=== PATIENT | female | born 1960 | race Caucasian/White ===

== ENCOUNTER → 2017-05-19 | Outpatient (CLI) | payer MEDICARE, MEDICAID ==
--- NOTE | 2017-05-19 10:27 | RADIOLOGY REPORT (SQ) ---
EXAM DESCRIPTION: CT HEAD WITHOUT COMPLETED DATE/TIME: 05/19/2017 9:12 am REASON FOR STUDY: OTHER AMNESIA (R41.3) R41.3 OTHER AMNESIA COMPARISON: None. TECHNIQUE: Axial images acquired through the brain without intravenous contrast. Images reviewed wi th bone, brain and subdural windows. Images stored on PACS. All CT scanners at this facility use dose modulation, iterative reconstruction, and/or weight based d osing when appropriate to reduce radiation dose to as low as reasonably achievable (ALARA). [facility]: Dose Right [facility]: CareDose [facility]: Dose Right [facility]: Teradose 4D [facility]: Stem CentRx RADIATION DOSE: Up-to-date CT equipment and radiation dose reduction techniques were employed. CTDIv ol: 49.0 mGy. DLP: 881 mGy-cm. mGy. LIMITATIONS: None. FINDINGS: VENTRICLES: Normal size and contour. CEREBRUM: No masses. No hemorrhage. No midline shift. No evidence for acute infarction. Normal gra y/white matter differentiation. No areas of low density in the white matter. CEREBELLUM: No masses. No hemorrhage. No alteration of density. No evidence for acute infarction. EXTRAAXIAL SPACES: No fluid collections. No masses. ORBITS AND GLOBE: No intra- or extraconal masses. Normal contour of globe without masses. CALVARIUM: No fracture. PARANASAL SINUSES: No fluid or mucosal thickening. SOFT TISSUES: No mass or hematoma. OTHER: No other significant finding. IMPRESSION: NORMAL BRAIN CT WITHOUT CONTRAST. EVIDENCE OF ACUTE STROKE: NO. COMMENT: Quality ID # [id number]: Final reports with documentation of one or more dose reduction techniques (e.g., Automated exposure control, adjustment of the mA and/or kV according to patient size, use of iterative reconstruction technique) TECHNICAL DOCUMENTATION: JOB ID: [id number]- All Rights Reserved
== END ==
LOC: RAD 09:01
PROVIDERS: ATTEND Family Medicine
DX: R41.3 Other amnesia (principal)
CPT/HCPCS: 70450

== ENCOUNTER → 2017-05-22 | Outpatient (CLI) | payer MEDICARE, MEDICAID ==
--- NOTE | 2017-05-22 12:56 | RADIOLOGY REPORT (SQ) ---
EXAM DESCRIPTION: MRI THORACIC SPINE WITHOUT COMPLETED DATE/TIME: 05/22/2017 12:00 pm REASON FOR STUDY: (M54.6) PAIN IN THORACIC SPINE M54.6 PAIN IN THORACIC SPINE COMPARISON: None. TECHNIQUE: Sagittal and Axial imaging includes T1, T2, STIR and gradient echo sequences. LIMITATIONS: Motion. FINDINGS: LOCALIZER: No worrisome findings. ALIGNMENT: Normal. VERTEBRAE: Intact. BONE MARROW: Benign hemangiomas. No significant marrow abnormality. HARDWARE: None in the spine. CORD: Normal in size and signal intensity. SOFT TISSUES: No soft tissue masses. THORACIC DISCS T1-T12: Ventral impression on the thecal sac due to small right paracentral disc herni ation at T12-L1. LOWER CERVICAL: Postsurgical changes. UPPER LUMBAR: Incompletely imaged. No obvious acute findings. OTHER: No other significant finding. IMPRESSION: Small disc herniation T12-L1. No evidence of acute compression fracture. TECHNICAL DOCUMENTATION: JOB ID: [id number] [employer]- All Rights Reserved
== END ==
LOC: RAD 10:52
PROVIDERS: ATTEND Family Medicine
DX: M54.6 Pain in thoracic spine (principal)
CPT/HCPCS: 72146

== ENCOUNTER 2017-07-24 11:31 | Day surgery (SDC) | payer MEDICARE, MEDICAID ==
[~2017-07-24 11:31] MED LIST: FENTANYL CITRATE INJ/PF 100 MCG/2 ML AMPUL ONE; MIDAZOLAM 2 MG/2 ML INJ ONE; PROPOFOL INJ 200 MG/20 ML VIAL IV ONE
[2017-07-24] MEDS ORDERED: PROPOFOL INJ 200 MG/20 ML VIAL IV ONE (11:55)
--- NOTE | 2017-07-24 13:09 | Operative Report ---
Operative Report DATE OF SURGERY: 07/24/17 Operative Report: The risks, benefits and alternatives of the procedure including risks of bleeding, perforation requiring surgery are explained to the patient in detail and informed consent is obtained. Patient was taken back to the endoscopy suite and placed in a left, lateral decubital position. Timeout was called. Propofol medications administered. A rectal examination was done which did not reveal any masses, tears or fissures. An Olympus videoscope was inserted into the patient's rectum. The scope was then carefully advanced all the way to the cecum. The cecum was identified by the usual anatomical landmarks including the ileocecal valve as well as the appendiceal office. Photodocumentation was obtained. Prep is good. The scope was then sequentially pulled back via the rest segments of the colon including the ascending colon, hepatic flexure, transverse colon, splenic flexure, descending colon finding to the rectosigmoid portions of the colon. Retroflexion maneuver is performed. The risks benefits and alternatives of the procedure explained to the patient in detail and informed consent is obtained.A GIF Olympus video scope was inserted into the patient's mouth and hypopharynx, the esophagus is identified intubated and insufflated ,the scope was then advanced through the esophagus stomach and duodenum, retroflexion maneuver is done, the esophagus stomach and first and second portions of the duodenum examined PREOPERATIVE DIAGNOSIS: Change in bowel habits. Dysphagia POSTOPERATIVE DIAGNOSIS: Gastritis status post biopsy rule out Helicobacter pylori. Hiatal hernia. 2 polyps one in the cecum and the other in the transverse colon area. The cecal polyp was removed via snare polypectomy and retrieved. The polyp in the transverse colon area was ablated in situ no tissue was retrieved. Internal hemorrhoids OPERATION: Colonoscopy with snare polypectomy. EGD with biopsy SURGEON: SERENITY QUIROGA ANESTHESIA: LMAC TISSUE REMOVED OR ALTERED: As noted above. COMPLICATIONS: None. ESTIMATED BLOOD LOSS: None. INTRAOPERATIVE FINDINGS: As noted above. PROCEDURE: Patient tolerated procedure well. No immediate postprocedure complications are noted. Patient discharged in good condition. Discharge date 07/24/2017. Discharge diet: Regular. Discharge activity: Regular. 2-3 week follow-up to discuss findings. Patient is instructed to call the office or proceed to the emergency room should there be any further problems or questions. 3-5 year surveillance colonoscopy. We will await pathology.
[2017-07-24] MEDS ORDERED: SIMETHICONE 80 MG TAB.CHEW ONE (13:13)
[2017-07-24 13:48] VITALS: BP 115/63
== END 2017-07-24 13:35 | disposition home or self-care (01) ==
LOC: END 11:31
PROVIDERS: ATTEND Internal Medicine Gastroenterology
PROC: 0D5L8ZZ Destruction of Transverse Colon, Via Natural or Artificial Opening Endoscopic (ICD-10-PCS; 2017-07-24)
PROC: 0DB68ZX Excision of Stomach, Via Natural or Artificial Opening Endoscopic, Diagnostic (ICD-10-PCS; principal; 2017-07-24 14:00)
PROC: 0DBH8ZX Excision of Cecum, Via Natural or Artificial Opening Endoscopic, Diagnostic (ICD-10-PCS; 2017-07-24 14:00)
DX: D12.0 Benign neoplasm of cecum (principal); D12.3 Benign neoplasm of transverse colon; K64.8 Other hemorrhoids; K44.9 Diaphragmatic hernia without obstruction or gangrene; K29.50 Unspecified chronic gastritis without bleeding; E03.9 Hypothyroidism, unspecified; M19.90 Unspecified osteoarthritis, unspecified site; Z88.5 Allergy status to narcotic agent; Z88.8 Allergy status to other drugs, medicaments and biological substances; Z79.899 Other long term (current) drug therapy
CPT/HCPCS: 43239; 45385; 88305 ×2; A9270; J2704; J2250; J3010

== ENCOUNTER → 2017-12-01 | Outpatient (CLI) | payer MEDICARE, MEDICAID ==
--- NOTE | 2017-12-01 13:27 | RADIOLOGY REPORT (SQ) ---
EXAM DESCRIPTION: T SPINE AP/LAT COMPLETED DATE/TIME: 12/01/2017 1:20 pm REASON FOR STUDY: M54.2 M54.9 DORSALGIA, UNSPECIFIED M54.2 CERVICALGIA COMPARISON: None. NUMBER OF VIEWS: Two views. TECHNIQUE: AP and lateral radiographic images acquired of the thoracic spine. LIMITATIONS: None. FINDINGS: MINERALIZATION: Normal. ALIGNMENT: Normal. No scoliosis. VERTEBRAE: No fracture or bone lesion. Maintained height, normal segmentation. DISCS: No significant loss of height or significant narrowing. No large osteophytes. HARDWARE: None in the spine. MEDIASTINUM AND SOFT TISSUES: Normal heart size and aortic contour. No soft tissue abnormality. VISUALIZED LUNG WILDER: Clear. OTHER: No other significant finding. IMPRESSION: NO SIGNIFICANT RADIOGRAPHIC FINDING IN THE THORACIC SPINE. TECHNICAL DOCUMENTATION: JOB ID: [id number] [employer]- All Rights Reserved Reading location - IP/workstation name: [email or web address]
--- NOTE | 2017-12-01 13:28 | RADIOLOGY REPORT (SQ) ---
EXAM DESCRIPTION: CERV SP 4 OR 5 VIEWS COMPLETED DATE/TIME: 12/01/2017 1:20 pm REASON FOR STUDY: M54.2 CERVICALGIA M54.9 DORSALGIA, UNSPECIFIED M54.9 DORSALGIA, UNSPECIFIED M54.2 CERVICALGIA COMPARISON: None. NUMBER OF VIEWS: Five views. TECHNIQUE: AP, lateral, obliques and odontoid radiographic images acquired of the cervical spine. LIMITATIONS: None. FINDINGS: MINERALIZATION: Normal. ALIGNMENT: Anatomic. VERTEBRAE: Vertebral bodies of normal height. DISCS: Disc space narrowing with osteophytes at C6-C7. FORAMINA: Foraminal narrowing due to posterior osteophytes, most pronounced at C6-C7. LATERAL AND POSTERIOR ELEMENTS: Facets, lateral masses and spinous processes without significant find ings. HARDWARE: Anterior fusion with hardware at C5-C6. SOFT TISSUES: No masses or calcifications. Lung apices clear. OTHER: No other significant finding. IMPRESSION: SURGICAL CHANGES WITH HARDWARE. DEGENERATIVE DISC DISEASE. NO ACUTE FINDINGS. TECHNICAL DOCUMENTATION: JOB ID: [id number] [employer]- All Rights Reserved Reading location - IP/workstation name: [email or web address]
== END ==
LOC: RAD 12:36
PROVIDERS: ATTEND Family Medicine
DX: M50.323 Other cervical disc degeneration at C6-C7 level (principal); M54.9 Dorsalgia, unspecified
CPT/HCPCS: 72050; 72070

== ENCOUNTER 2018-02-09 13:12 | Observation (INO) | payer MEDICAID, MEDICARE ==
[2018-02-09] MEDS ORDERED: NORMAL SALINE 1000 ML 1,000 ML IV ONE ×2 (14:19→16:31)
[2018-02-09] MEDS ORDERED: FAMOTIDINE INJ/PF 20 MG/2 ML SDV IV ONE (14:19)
[2018-02-09] MEDS ORDERED: ONDANSETRON HCL INJ/PF 4 MG/2 ML SDV IV ONE (14:20)
--- NOTE | 2018-02-09 14:24 | ER Document Report ---
ED GI/ - General Chief Complaint: Diarrhea Stated Complaint: DIARRHEA Time Seen by Provider: 02/09/18 13:49 Notes: 57-year-old female patient emergency department chief complaint of nausea vomiting. Patient was diagnosed with C. difficile about 5 or 6 days ago. Has been taking Flagyl but now having increased amounts of nausea and vomiting. States that she does not think she can take the C. difficile medication anymore because it is making her sick. Denies any worsening abdominal pain. Has had persistent diarrhea. No other issues at this time. Denies any fever, chills, sweats. Patient states that she feels dehydrated. TRAVEL OUTSIDE OF THE [place] IN LAST 30 DAYS: No - HPI Patient complains to provider of: Diarrhea, Vomiting Timing/Duration: Gradual, Constant Quality of pain: Achy - Related Data Allergies/Adverse Reactions: codeine [Codeine] Allergy (Unknown, Verified 02/09/18 13:14) CRAMPING naproxen sodium [From Anaprox] Adverse Reaction (Mild, Verified 02/09/18 13:14) cramping Past Medical History - General Information source: Patient - Social History Smoking Status: Never Smoker Chew tobacco use (# tins/day): No Frequency of alcohol use: None Drug Abuse: None Lives with: Family Family History: Reviewed & Not Pertinent Patient has suicidal ideation: No Patient has homicidal ideation: No - Past Medical History Cardiac Medical History: Denies: Hx Coronary Artery Disease, Hx Heart Attack, Hx Hypertension - LOW Pulmonary Medical History: Reports: Hx Asthma - hx, Hx COPD - hx Denies: Hx Bronchitis, Hx Pneumonia Neurological Medical History: Reports: Hx Seizures - R/T ETOH. Denies: Hx Cerebrovascular Accident Renal/ Medical History: Denies: Hx Peritoneal Dialysis GI Medical History: Reports: Hx Hepatitis Musculoskeletal Medical History: Reports Hx Arthritis - DDD, chronic back pain Infectious Medical History: Reports: Hx Hepatitis Past Surgical History: Reports: Hx Cholecystectomy, Hx Hysterectomy, Hx Orthopedic Surgery - L hand - Immunizations Hx Diphtheria, Pertussis, Tetanus Vaccination: Yes Review of Systems - Review of Systems Constitutional: Malaise, Weakness. denies: Fever EENT: denies: Double vision, Difficulty swallowing, Throat swelling Cardiovascular: denies: Chest pain, Palpitations, Heart racing Respiratory: denies: Cough, Hurts to breathe, Stridor, Wheezing Gastrointestinal: Diarrhea, Nausea, Vomiting Genitourinary: denies: Burning, Dysuria, Discharge, Flank pain Female Genitourinary: No symptoms reported Musculoskeletal: No symptoms reported Skin: No symptoms reported Hematologic/Lymphatic: No symptoms reported Neurological/Psychological: No symptoms reported Physical Exam - Vital signs Vitals: Temp Pulse Resp BP Pulse Ox 98.3 F 97 16 125/98 H 97 02/09/18 13:17 02/09/18 13:17 02/09/18 13:17 02/09/18 13:17 02/09/18 13:17 Interpretation: Normal - General General appearance: Appears well, Alert - HEENT Head: Normocephalic, Atraumatic Eyes: Normal Pupils: PERRL - Respiratory Respiratory status: No respiratory distress Chest status: Nontender Breath sounds: Normal Chest palpation: Normal - Cardiovascular Rhythm: Regular Heart sounds: Normal auscultation Murmur: No - Abdominal Inspection: Normal Distension: No distension Bowel sounds: Normal Tenderness: Nontender Organomegaly: No organomegaly - Back Back: Normal, Nontender - Extremities General upper extremity: Normal inspection, Nontender, Normal color, Normal ROM , Normal temperature General lower extremity: Normal inspection, Nontender, Normal color, Normal ROM , Normal temperature, Normal weight bearing. No: Guillermina's sign - Neurological Neuro grossly intact: Yes Cognition: Normal Orientation: AAOx4 Patricia Coma Scale Eye Opening: Spontaneous Patricia Coma Scale Verbal: Oriented Patricia Coma Scale Motor: Obeys Commands Patricia Coma Scale Total: 15 Speech: Normal Motor strength normal: LUE, RUE, LLE, RLE Sensory: Normal - Psychological Associated symptoms: Normal affect, Normal mood - Skin Skin Temperature: Warm Skin Moisture: Dry Skin Color: Normal Course - Re-evaluation Re-evalutation: 02/09/18 16:05 Laboratory 02/09/18 02/09/18 02/09/18 14:37 14:37 14:37 WBC 7.9 RBC 5.75 H Hgb 17.6 H Hct 49.8 H MCV 87 MCH 30.6 MCHC 35.4 RDW 13.6 Plt Count 156 Seg Neutrophils % 59.3 Lymphocytes % 34.4 Monocytes % 4.2 Eosinophils % 1.5 Basophils % 0.6 Absolute Neutrophils 4.7 Absolute Lymphocytes 2.7 Absolute Monocytes 0.3 Absolute Eosinophils 0.1 Absolute Basophils 0.0 Sodium 144.6 Potassium 5.1 H Chloride 102 Carbon Dioxide 27 Anion Gap 16 BUN 12 Creatinine 0.99 Est GFR ( Amer) > 60 Est GFR (Non-Af Amer) 58 L Glucose 82 Calcium 10.7 H Total Bilirubin 0.7 Direct Bilirubin 0.4 Neonat Total Bilirubin Not Reportable Neonat Direct Bilirubin Not Reportable Neonat Indirect Bili Not Reportable AST 97 H ALT 81 H Alkaline Phosphatase 68 Troponin I 0.027 Total Protein 9.9 H Albumin 5.5 H Lipase 80.3 02/09/18 16:34 Patient denies any chest pain at this time. EKG and troponin were drawn based on her nausea to rule out [place]. Troponin is negative but on the high end of normal at 0.027. I am going to do a second troponin just to make sure this is not going out. I have given patient some Toradol and have just added 2 Percocets. Patient is assured me that she is not driving today. Currently she feels much better 02/09/18 17:41 Second cardiac troponin was ordered just to make sure that it was not going up. 2 L of fluid have been given. Second cardiac troponin had increased slightly to 0.032. At this time uncomfortable saying that she does not need to be admitted for observation. Did consult with charter representative who thinks this is related to dehydration. Regardless I am going to give her aspirin placed on a groundwater monitoring technician and admit her for further testing. Consulted with Dr. Garner. Pending admit at this time. Patient is chest pain-free at this time. - Vital Signs Vital signs: Temp Pulse Resp BP Pulse Ox 98.3 F 97 16 125/98 H 97 02/09/18 13:17 02/09/18 13:17 02/09/18 13:17 02/09/18 13:17 02/09/18 13:17 - Laboratory Result Diagrams: 02/09/18 14:37 02/09/18 14:37 Laboratory results interpreted by me: 02/09/18 02/09/18 02/09/18 14:37 14:37 15:22 RBC 5.75 H Hgb 17.6 H Hct 49.8 H Potassium 5.1 H Est GFR (Non-Af Amer) 58 L Calcium 10.7 H AST 97 H ALT 81 H Total Protein 9.9 H Albumin 5.5 H Urine Ketones TRACE H Ur Leukocyte Esterase TRACE H Urine Ascorbic Acid 40 H - EKG Interpretation by [place] EKG shows normal: Sinus rhythm, [place], Intervals, QRS Complexes, ST-T Waves Discharge - Discharge Clinical Impression: C. difficile colitis Chest pain Qualifiers: Chest pain type: unspecified Qualified Code(s): R07.9 - Chest pain, unspecified Condition: Good Disposition: ADMITTED OBSERVATION Admitting Provider: Hospitalist - Dut Unit Admitted: Telemetry Referrals: ABHINAV LANGLEY MD [Primary Care Provider] - Follow up as needed
[2018-02-09 15:01] LABS: ABSOLUTE EOSINOPHILS # (AUTO) 0.1 10^3/uL (0.0-0.6); ABSOLUTE LYMPHOCYTES (AUTO) 2.7 10^3/uL (0.5-4.7); ABSOLUTE MONOCYTES (AUTO) 0.3 10^3/uL (0.1-1.4); ABSOLUTE NEUT (AUTO) 4.7 10^3/uL (1.7-8.2); BASOPHILS % (AUTO) 0.6 % (0-2); EOSINOPHILS % (AUTO) 1.5 % (0-6); HEMATOCRIT 49.8 % (36.0-47.0); HEMOGLOBIN 17.6 g/dL (12.0-15.5); LYMPHOCYTES % (AUTO) 34.4 % (13-45); MEAN CORPUSCULAR HEMOGLOBIN 30.6 pg (27.0-33.4); MEAN CORPUSCULAR HGB CONC 35.4 g/dL (32.0-36.0); MEAN CORPUSCULAR VOLUME 87 fl (80-97); MONOCYTES % (AUTO) 4.2 % (3-13); PLATELET COUNT 156 10^3/uL (150-450); RED BLOOD COUNT 5.75 10^6/uL (3.72-5.28); RED CELL DISTRIBUTION WIDTH 13.6 % (11.5-14.0); SEGMENTED NEUTROPHILS % (AUTO) 59.3 % (42-78); TOTAL CELLS COUNTED % (AUTO) 100 %; WHITE BLOOD COUNT 7.9 10^3/uL (4.0-10.5)
[2018-02-09] MEDS ORDERED: KETOROLAC TROMETHAMINE INJ/PF 30 MG/1 ML SDV IV ONE (15:29)
[2018-02-09 15:49] LABS: ALANINE AMINOTRANSFERASE 81 U/L (9-52); ALBUMIN 5.5 g/dL (3.5-5.0); ALKALINE PHOSPHATASE 68 U/L (38-126); ANION GAP 16 (5-19); ASPARTATE AMINO TRANSFERASE 97 U/L (14-36); BILIRUBIN,DIRECT 0.4 mg/dL (0.0-0.4); BILIRUBIN,TOTAL 0.7 mg/dL (0.2-1.3); BLOOD UREA NITROGEN 12 mg/dL (7-20); CALCIUM 10.7 mg/dL (8.4-10.2); CARBON DIOXIDE 27 mmol/L (22-30); CHLORIDE 102 mmol/L (98-107); GLUCOSE 82 mg/dL (75-110); LIPASE 80.3 U/L (23-300); POTASSIUM 5.1 mmol/L (3.6-5.0); SODIUM 144.6 mmol/L (137-145); TOTAL PROTEIN 9.9 g/dL (6.3-8.2)
[2018-02-09 16:02] LABS: APPEARANCE,URINE SLIGHTLY-CLOUDY; BILIRUBIN,URINE NEGATIVE (NEGATIVE); COLOR,URINE YELLOW; GLUCOSE, URINE NEGATIVE (NEGATIVE); KETONES,URINE TRACE mg/dL (NEGATIVE); LEUKOCYTE ESTERASE,URINE TRACE (NEGATIVE); NITRITE,URINE NEGATIVE (NEGATIVE); PROTEIN,URINE NEGATIVE (NEGATIVE); URINE SPECIFIC GRAVITY 1.008; UROBILINOGEN,URINE NEGATIVE mg/dL (<2.0)
[2018-02-09] MEDS ORDERED: OXYCODONE-ACETAMINOPHEN 5-325 MG TABLET PO ONE (16:33)
[2018-02-09] MEDS ORDERED: ASPIRIN 81 MG TABLET, CHEWABLE ONE (17:34)
--- NOTE | 2018-02-09 18:19 | EKG REPORT ---
SEVERITY:- ABNORMAL ECG - SINUS RHYTHM BORDERLINE R WAVE PROGRESSION, ANTERIOR LEADS NONSPECIFIC T ABNORMALITIES, ANTERIOR LEADS : Confirmed by: Geni Hyde 09-Feb-2018 18:17:51
[2018-02-09] MEDS ORDERED: IPRATROPIUM/ALBUTEROL 0.5-2.5 MG/3 ML AMPUL NEB PRN (18:27)
[2018-02-09] MEDS ORDERED: NORMAL SALINE 1000 ML 1,000 ML IV PRN (18:27)
[2018-02-09] MEDS ORDERED: NITROGLYCERIN 0.4 MG/TAB 25 TAB/BOTTLE SL PRN (18:59)
--- NOTE | 2018-02-09 19:05 | PDOC H&P ---
History of Present Illness Admission Date/PCP: 02/09/18 17:54 ABHINAV LANGLEY MD Patient complains of: diarrhea, chest pain History of Present Illness: TESS LOOMIS is a 57 year old female with no significant PMH who presented to the ED c/o diarrhea, feeling weak and having chest pain. patient states she was diagnosed with C. Diff about 5 days ago by her PCP and started on flagyl four times a day. states she has been taking it but still having diarrhea - associated with nausea and multiple episodes of non blood emesis. states she can 't really keep her food down. states her mother had c. diff and she likely got it from her. also states that she has been having chest pain. first time was 4- 5 days ago at rest, left side of chest and then radiated to right. associated with some SOB, but no fever, diaphoresis, jaw pain or left arm pain. admits that it lasted for hours, 3/10, and nothing made it better. she laid down in bed and it went away later. states 3 days ago she was arguing with her mother and had chest pain on the right side of her chest this time. states she smokes 1 /2 ppd now but used to smoke 2 ppd before. states she has family history of diabetes. she doesn't know if she has diabetes or cholesterol. she also has been having a lot diarrhea - hasn't been able to tolerate a good po diet- hasn' t been drinking as much as she should- she feels she's dehydrated now. otherwise she has no other complaints today. she's not a good historian as she kept losing her thoughts and I had keep asking multiple times about her history. Past Medical History Cardiac Medical History: Denies: Coronary Artery Disease, Myocardial Infarction, Hypertension - LOW Pulmonary Medical History: Reports: Asthma - hx, Chronic Obstructive Pulmonary Disease (COPD) - hx Denies: Bronchitis, Pneumonia Neurological Medical History: Reports: Seizures - R/T ETOH GI Medical History: Reports: Hepatitis Musculoskeltal Medical History: Reports: Arthritis - DDD, chronic back pain Hematology: Denies: Anemia Past Surgical History Past Surgical History: Reports: Cholecystectomy, Hysterectomy, Orthopedic Surgery - L hand Social History Lives with: Family Smoking Status: Never Smoker Family History Family History: Reviewed & Not Pertinent Parental Family History Reviewed: Yes Children Family History Reviewed: Unknown Sibling(s) Family History Reviewed.: Unknown Medication/Allergy Home Medications: Alprazolam [Xanax] 2 mg PO DAILYP PRN 02/09/18 Gabapentin [Neurontin] 800 mg PO Q6 02/09/18 Levothyroxine Sodium [Synthroid 0.05 mg Tablet] 0.05 mg PO Q6AM 02/09/18 Promethazine HCl [Phenergan 25 mg Tablet] 25 mg PO Q6HP PRN 02/09/18 Venlafaxine HCl ER [Effexor Xr 75 mg Cap.sr] 75 mg PO DAILY 02/09/18 Allergies/Adverse Reactions: codeine [Codeine] Allergy (Unknown, Verified 02/09/18 13:14) CRAMPING naproxen sodium [From Anaprox] Adverse Reaction (Mild, Verified 02/09/18 13:14) cramping Review of Systems All systems: reviewed and no additional remarkable complaints except as stated Constitutional: PRESENT: chills. ABSENT: fever(s) Cardiovascular: PRESENT: chest pain. ABSENT: dyspnea on exertion Gastrointestinal: PRESENT: diarrhea, nausea, vomiting Physical Exam Vital Signs: Temp Pulse Resp BP Pulse Ox 98.3 F 97 16 125/98 H 97 02/09/18 13:17 02/09/18 13:17 02/09/18 13:17 02/09/18 13:17 02/09/18 13:17 General appearance: PRESENT: no acute distress, well-developed, well-nourished Head exam: PRESENT: atraumatic, normocephalic Eye exam: PRESENT: EOMI, PERRLA. ABSENT: scleral icterus Ear exam: PRESENT: normal external ear exam Mouth exam: PRESENT: dry mucosa, neck supple, tongue midline Neck exam: PRESENT: full ROM. ABSENT: tracheal deviation Respiratory exam: PRESENT: decreased breath sounds - slightly decreased at the bases with occasional expiratory wheezing, symmetrical, wheezes Cardiovascular exam: PRESENT: RRR, +S1, +S2, other Pulses: PRESENT: +2 pedal pulses bilateral GI/Abdominal exam: PRESENT: normal bowel sounds, soft, tenderness Extremities exam: ABSENT: joint swelling, pedal edema, +2 edema Neurological exam: PRESENT: alert, awake, oriented to person, oriented to place , oriented to time, oriented to situation, CN II-XII grossly intact Skin exam: PRESENT: dry, warm Results Status: Image reviewed by me Assessment & Plan - Diagnosis (1) Chest pain Qualifiers: Chest pain type: unspecified Qualified Code(s): R07.9 - Chest pain, unspecified Is this a current diagnosis for this admission?: Yes Plan: chest pain r/o ACS Trend troponins, no EKG changes noted, check in AM, check CXR now. check TSH. ? ECHO if needed. history of smoking, family history of HTN. undiagnosed ?COPD, ?hyperlipidemia or ?diabetes. Supplemented O2, nitrostat PRN, morphine PRN, ASA daily. (2) C. difficile colitis Is this a current diagnosis for this admission?: Yes Plan: c/w antibiotics with flagyl 500mg PO Q8h since this is her first episode. she tells me she has taken about 5 days already- will c/w for another 5 days (3) Tobacco abuse Is this a current diagnosis for this admission?: Yes Plan: spent >5 min counseling about tobacco cessation - Time Time Spent: 50 to 70 Minutes Smoking Cessation Education: 3 to 10 minutes Anticipated discharge: Home Within: within 48 hours
--- NOTE | 2018-02-09 20:06 | RADIOLOGY REPORT (SQ) ---
EXAM DESCRIPTION: CHEST SINGLE VIEW COMPLETED DATE/TIME: 02/09/2018 7:30 pm REASON FOR STUDY: chest pain COMPARISON: 11/04/2015 EXAM PARAMETERS: NUMBER OF VIEWS: One view. TECHNIQUE: Single frontal radiographic view of the chest acquired. RADIATION DOSE: NA LIMITATIONS: None. FINDINGS: LUNGS AND PLEURA: No acute opacities, masses or pneumothorax. No pleural effusion. MEDIASTINUM AND HILAR STRUCTURES: Stable. HEART AND VASCULAR STRUCTURES: Heart normal in size. Normal vasculature. BONES: No acute findings. HARDWARE: None in the chest. OTHER: No other significant finding. IMPRESSION: NO ACUTE RADIOGRAPHIC FINDING IN THE CHEST. TECHNICAL DOCUMENTATION: JOB ID: [id number] [employer]- All Rights Reserved Reading location - IP/workstation name: [employer]
[2018-02-09] MEDS ORDERED: ASPIRIN 81 MG TABLET, ENT COATED PO ONE (20:43)
[2018-02-09] MEDS: ACETAMINOPHEN 325 MG TABLET PO PRN (20:52)
[2018-02-09] MEDS: OXYCODONE-ACETAMINOPHEN 5-325 MG TABLET PO PRN (21:17)
[2018-02-09] MEDS: MORPHINE SULFATE 10 MG/ML INJ IV PRN (21:48)
[2018-02-09] MEDS ORDERED: DIPHENHYDRAMINE HCL 50 MG CAPSULE PO PRN (22:55)
[2018-02-09] MEDS ORDERED: NICOTINE 14 MG/24 HR PATCH.TD24 TD ONE (23:00)
[2018-02-09] MEDS ORDERED: ALPRAZOLAM 0.5 MG TABLET PO ONE (23:00)
[2018-02-09] MEDS: METRONIDAZOLE 500 MG TABLET PO SCH (23:14)
[2018-02-09] MEDS: FAMOTIDINE 20 MG TABLET PO SCH (23:14)
[2018-02-09] MEDS: ENOXAPARIN SODIUM INJ 40 MG/0.4 ML DISP.SYRIN SUBCUT SCH (23:14)
[2018-02-10] MEDS: METRONIDAZOLE 500 MG TABLET PO SCH ×3 (05:36→21:05)
[2018-02-10] MEDS: LEVOTHYROXINE SODIUM 0.05 MG TABLET PO SCH (05:36)
[2018-02-10] MEDS: FAMOTIDINE 20 MG TABLET PO SCH ×2 (05:36→19:06)
[2018-02-10 06:02] LABS: HEMATOCRIT 37.2 % (36.0-47.0); MEAN CORPUSCULAR HEMOGLOBIN 30.4 pg (27.0-33.4); MEAN CORPUSCULAR VOLUME 87 fl (80-97); RED BLOOD COUNT 4.28 10^6/uL (3.72-5.28); RED CELL DISTRIBUTION WIDTH 13.4 % (11.5-14.0); WHITE BLOOD COUNT 5.1 10^3/uL (4.0-10.5)
[2018-02-10 06:07] LABS: ANION GAP 8 (5-19); BLOOD UREA NITROGEN 13 mg/dL (7-20); CALCIUM 8.7 mg/dL (8.4-10.2); CARBON DIOXIDE 25 mmol/L (22-30); CHLORIDE 109 mmol/L (98-107); CHOLESTEROL 62.39 mg/dL (0-200); GLUCOSE 70 mg/dL (75-110); POTASSIUM 4.3 mmol/L (3.6-5.0); SODIUM 142.1 mmol/L (137-145); TRIGLYCERIDES 87 mg/dL (<150)
[2018-02-10] MEDS: OXYCODONE-ACETAMINOPHEN 5-325 MG TABLET PO PRN (06:12)
[2018-02-10 06:19] LABS: DIRECT LDL < 30 mg/dL (<100)
[2018-02-10 07:07] LABS: PLATELET COUNT 88 10^3/uL (150-450)
[2018-02-10 07:36] LABS: AMORPHOUS SEDIMENT,URINE TRACE /HPF; APPEARANCE,URINE CLOUDY; BILIRUBIN,URINE NEGATIVE (NEGATIVE); COLOR,URINE YELLOW; GLUCOSE, URINE NEGATIVE (NEGATIVE); KETONES,URINE NEGATIVE (NEGATIVE); LEUKOCYTE ESTERASE,URINE MODERATE (NEGATIVE); NITRITE,URINE NEGATIVE (NEGATIVE); PROTEIN,URINE NEGATIVE (NEGATIVE); URINE SPECIFIC GRAVITY 1.014; UROBILINOGEN,URINE NEGATIVE mg/dL (<2.0)
[2018-02-10] MEDS: ACETAMINOPHEN 325 MG TABLET PO PRN (08:32)
[2018-02-10] MEDS: ENOXAPARIN SODIUM INJ 40 MG/0.4 ML DISP.SYRIN SUBCUT SCH (09:59)
[2018-02-10] MEDS: ASPIRIN 81 MG TABLET, CHEWABLE PO SCH (10:00)
[2018-02-10] MEDS: NICOTINE 14 MG/24 HR PATCH.TD24 TD SCH (10:00)
[2018-02-10] MEDS: VENLAFAXINE HCL 75 MG CAP.SR.24H PO SCH (10:00)
[2018-02-10] MEDS ORDERED: ASPIRIN 81 MG TABLET, CHEWABLE PO SCH (10:00)
--- NOTE | 2018-02-10 10:42 | EKG REPORT ---
SEVERITY:- ABNORMAL ECG - SINUS RHYTHM NONSPECIFIC INTRAVENTRICULAR CONDUCTION DELAY BORDERLINE R WAVE PROGRESSION, ANTERIOR LEADS : Confirmed by: Geni Hyde 10-Feb-2018 10:42:14
--- NOTE | 2018-02-10 10:44 | EKG REPORT ---
SEVERITY:- BORDERLINE ECG - SINUS RHYTHM LOW VOLTAGE IN FRONTAL LEADS BORDERLINE R WAVE PROGRESSION, ANTERIOR LEADS BORDERLINE T ABNORMALITIES, ANT-LAT LEADS : Confirmed by: Geni Hyde 10-Feb-2018 10:42:43
[2018-02-10] MEDS: ONDANSETRON HCL INJ/PF 4 MG/2 ML SDV IV PRN ×2 (14:16→19:06)
[2018-02-10] MEDS: MORPHINE SULFATE 10 MG/ML INJ IV PRN ×2 (14:16→19:06)
--- NOTE | 2018-02-10 16:27 | PDOC PROGRESS REPORT ---
Subjective Progress Note for:: 02/10/18 - seen on rounds this afternoon Subjective:: states she had a bad headache this morning. states the light was bothering her. thinks it might be migraine- states at home she takes marijuana and it helps. denies any chest pain now. Reason For Visit: CHEST PAIN,DIARRHEA Physical Exam Vital Signs: Temp Pulse Resp BP Pulse Ox 98.7 F 50 L 14 139/85 H 97 02/10/18 12:00 02/10/18 14:00 02/10/18 12:00 02/10/18 12:00 02/10/18 12:00 Intake & Output 02/09/18 02/10/18 02/11/18 06:59 06:59 06:59 Intake Total 250 1000 Output Total 300 Balance -50 1000 Weight 146 lb 6.191 oz General appearance: PRESENT: no acute distress, well-developed, well-nourished Head exam: PRESENT: atraumatic, normocephalic Eye exam: PRESENT: EOMI, PERRLA. ABSENT: scleral icterus Ear exam: PRESENT: normal external ear exam Mouth exam: PRESENT: neck supple, tongue midline Respiratory exam: PRESENT: clear to auscultation chandler, symmetrical, unlabored Cardiovascular exam: PRESENT: +S1, +S2 Pulses: PRESENT: +2 pedal pulses bilateral GI/Abdominal exam: PRESENT: normal bowel sounds, soft. ABSENT: tenderness Extremities exam: ABSENT: +2 edema Neurological exam: PRESENT: alert, awake, oriented to person, oriented to place , oriented to time, oriented to situation, CN II-XII grossly intact Skin exam: PRESENT: dry, warm Results Laboratory Results: 02/10/18 04:40 02/10/18 04:40 02/10/18 02/10/18 02/10/18 04:40 04:40 04:40 WBC 5.1 RBC 4.28 Hgb 13.0 D Hct 37.2 MCV 87 MCH 30.4 MCHC 35.0 RDW 13.4 Plt Count 88 L Sodium 142.1 Potassium 4.3 Chloride 109 H Carbon Dioxide 25 Anion Gap 8 BUN 13 Creatinine 0.87 Est GFR ( Amer) > 60 Est GFR (Non-Af Amer) > 60 Glucose 70 L Calcium 8.7 Magnesium 2.2 Triglycerides 87 Cholesterol 62.39 LDL Cholesterol Direct < 30 VLDL Cholesterol 17.0 HDL Cholesterol 30 L TSH 2.63 Urine Color Urine Appearance Urine pH Ur Specific Superior Urine Protein Urine Glucose (UA) Urine Ketones Urine Blood Urine Nitrite Ur Leukocyte Esterase Urine WBC (Auto) Urine RBC (Auto) 02/10/18 06:30 WBC RBC Hgb Hct MCV MCH MCHC RDW Plt Count Sodium Potassium Chloride Carbon Dioxide Anion Gap BUN Creatinine Est GFR ( Amer) Est GFR (Non-Af Amer) Glucose Calcium Magnesium Triglycerides Cholesterol LDL Cholesterol Direct VLDL Cholesterol HDL Cholesterol TSH Urine Color YELLOW Urine Appearance CLOUDY Urine pH 5.0 Ur Specific Superior 1.014 Urine Protein NEGATIVE Urine Glucose (UA) NEGATIVE Urine Ketones NEGATIVE Urine Blood NEGATIVE Urine Nitrite NEGATIVE Ur Leukocyte Esterase MODERATE H Urine WBC (Auto) 27 Urine RBC (Auto) 4 02/09/18 02/10/18 02/10/18 19:15 00:40 12:55 Troponin I 0.035 0.045 0.063 Impressions: Chest X-Ray 02/09/18 00:00 IMPRESSION: NO ACUTE RADIOGRAPHIC FINDING IN THE CHEST. Assessment & Plan - Diagnosis (1) Chest pain Qualifiers: Chest pain type: unspecified Qualified Code(s): R07.9 - Chest pain, unspecified Is this a current diagnosis for this admission?: Yes Plan: Troponin trending up slightly. I had initially consulted Dr godoy but then he reviewed the case with me personally and he believes this is not cardiac. he told me to cancel the consult and have her f/u outpatient. i advised this to patient and she verbalized understanding. most likely d/c her tomorrow on aspirin daily (2) C. difficile colitis Is this a current diagnosis for this admission?: Yes Plan: c/w antibiotics with flagyl 500mg PO Q8h since this is her first episode. she tells me she has taken about 5 days already- will c/w for another 5 days. denies diarrhea overnight (3) Tobacco abuse Is this a current diagnosis for this admission?: Yes - Time Anticipated discharge: Home Within: within 24 hours
[2018-02-10] MEDS ORDERED: ALPRAZOLAM 0.5 MG TABLET PO SCH (22:00)
[2018-02-11] MEDS: MORPHINE SULFATE 10 MG/ML INJ IV PRN ×2 (00:14→06:54)
[2018-02-11] MEDS: LEVOTHYROXINE SODIUM 0.05 MG TABLET PO SCH (06:54)
[2018-02-11] MEDS: METRONIDAZOLE 500 MG TABLET PO SCH (06:54)
[2018-02-11] MEDS: FAMOTIDINE 20 MG TABLET PO SCH (06:54)
[2018-02-11] MEDS: ENOXAPARIN SODIUM INJ 40 MG/0.4 ML DISP.SYRIN SUBCUT SCH (09:13)
[2018-02-11] MEDS: VENLAFAXINE HCL 75 MG CAP.SR.24H PO SCH (09:16)
[2018-02-11] MEDS: ASPIRIN 81 MG TABLET, CHEWABLE PO SCH (09:16)
[2018-02-11] MEDS: NICOTINE 14 MG/24 HR PATCH.TD24 TD SCH (09:16)
[2018-02-11] MEDS: ACETAMINOPHEN 325 MG TABLET PO PRN (09:25)
--- NOTE | 2018-02-11 09:51 | PDOC DISCHARGE SUMMARY ---
General - Admit/Disc Date/PCP Admission Date/Primary Care Provider: 02/09/18 17:54 ABHINAV LANGLEY MD Discharge Date: 02/11/18 - seen on rounds this morning - Discharge Diagnosis (1) Chest pain Is this a current diagnosis for this admission?: Yes (2) C. difficile colitis Is this a current diagnosis for this admission?: Yes (3) Tobacco abuse Is this a current diagnosis for this admission?: Yes - Additional Information Home Medications: Alprazolam [Xanax] 2 mg PO QHS 02/09/18 Diphenhydramine HCl [Benadryl] 50 mg PO QHS PRN 02/09/18 Gabapentin [Neurontin] 800 mg PO Q6 02/09/18 Levothyroxine Sodium [Synthroid 0.05 mg Tablet] 0.05 mg PO Q6AM 02/09/18 Promethazine HCl [Phenergan 25 mg Tablet] 25 mg PO Q6HP PRN 02/09/18 Venlafaxine HCl ER [Effexor Xr 75 mg Cap.sr] 75 mg PO DAILY 02/09/18 History of Present Illness Patient complains of: chest pain, dehydration History of Present Illness: TESS LOOMIS is a 57 year old female with no significant PMH who presented to the ED c/o diarrhea, feeling weak and having chest pain. patient states she was diagnosed with C. Diff about 5 days ago by her PCP and started on flagyl four times a day. states she has been taking it but still having diarrhea - associated with nausea and multiple episodes of non blood emesis. states she can 't really keep her food down. states her mother had c. diff and she likely got it from her. also states that she has been having chest pain. first time was 4- 5 days ago at rest, left side of chest and then radiated to right. associated with some SOB, but no fever, diaphoresis, jaw pain or left arm pain. admits that it lasted for hours, 3/10, and nothing made it better. she laid down in bed and it went away later. states 3 days ago she was arguing with her mother and had chest pain on the right side of her chest this time. states she smokes 1 /2 ppd now but used to smoke 2 ppd before. states she has family history of diabetes. she doesn't know if she has diabetes or cholesterol. she also has been having a lot diarrhea - hasn't been able to tolerate a good po diet- hasn' t been drinking as much as she should- she feels she's dehydrated now. otherwise she has no other complaints today. she's not a good historian as she kept losing her thoughts and I had keep asking multiple times about her history. Hospital Course Hospital Course: Since admission i Consulted cardiology but Dr Wang felt this is not cardiac in origin and told me to to have her follow up outpatient. patient did not have any more chest pain after admission. her troponins were trending up very slowly but Dr Wnag told me to stop checking them since it is not cardiac in origin. Her last troponin was 0.065. she's not complaining at this time. she did c/o some right chest wall tenderness this morning- evident on palpation. i advised her to f/u with PCP and per diem outpatient She was also having some headaches- c/o light bothering her- it is better today. states she will f/u with her PCP this week. unfortunately this is monday and we cannot make her the appt so we will have her make the appt tomorrow. she's understands She's also complaining to the nurse that she has a knot on her right breast. tells me that she's hasn't had a mammo in a few years. i had long discussion about the importance of a mammo after discharge. I examined her with nurse and i was unable to palpate anything abnormal on her right breast. she still needs a mammo she was diagnosed with c. diff outpatient and today is day 6 of flagyl- advised her to continue and f/u with pcp patient verbalized understanding of all these instructions Physical Exam Vital Signs: Temp Pulse Resp BP Pulse Ox 98.3 F 73 20 129/90 H 99 02/11/18 08:08 02/11/18 08:08 02/11/18 08:08 02/11/18 08:08 02/11/18 08:08 Intake & Output 02/10/18 02/11/18 02/12/18 06:59 06:59 06:59 Intake Total 250 1480 Output Total 300 2 Balance -50 1478 Weight 146 lb 6.191 oz 144 lb 13.499 oz General appearance: PRESENT: no acute distress, well-developed, well-nourished Head exam: PRESENT: atraumatic, normocephalic Eye exam: PRESENT: EOMI, PERRLA. ABSENT: scleral icterus Ear exam: PRESENT: normal external ear exam Mouth exam: PRESENT: moist, neck supple, tongue midline Neck exam: ABSENT: tracheal deviation Respiratory exam: PRESENT: clear to auscultation chandler, symmetrical Cardiovascular exam: PRESENT: +S1, +S2 Pulses: PRESENT: +2 pedal pulses bilateral GI/Abdominal exam: PRESENT: normal bowel sounds, soft. ABSENT: tenderness Musculoskeletal exam: PRESENT: other - minimal right chest wall tenderness- examined right breast with nursing- no palpable abnormalities Neurological exam: PRESENT: alert, awake, oriented to person, oriented to place , oriented to time, oriented to situation, CN II-XII grossly intact Skin exam: PRESENT: dry, warm Results Laboratory Results: 02/10/18 04:40 02/10/18 04:40 02/09/18 02/10/18 02/10/18 19:15 00:40 12:55 Troponin I 0.035 0.045 0.063 Impressions: Chest X-Ray 02/09/18 00:00 IMPRESSION: NO ACUTE RADIOGRAPHIC FINDING IN THE CHEST. Qualifiers - * PATIENT BEING DISCHARGED WITH ANY OF THE FOLLOWING DIAGNOSIS: No VTE patient discharged on overlapping Therapy?: No Plan Discharge Plan: home into the care of her PCP follow up with in 1 week Time Spent: Less than 30 Minutes
[2018-02-11 09:57] VITALS: BP 107/59
== END 2018-02-11 11:03 | disposition home or self-care (01) ==
LOC: ER 13:12 → EH 17:54 → 4N 22:31
PROVIDERS: ADMIT Internal Medicine; ATTEND Internal Medicine
PROC: HZ31ZZZ Individual Counseling for Substance Abuse Treatment, Behavioral (ICD-10-PCS; principal; 2018-02-09)
DX: R07.9 Chest pain, unspecified (principal); A04.72 Enterocolitis due to Clostridium difficile, not specified as recurrent; R06.02 Shortness of breath; F17.210 Nicotine dependence, cigarettes, uncomplicated; R51 Headache; N64.59 Other signs and symptoms in breast; H53.149 Visual discomfort, unspecified; Z79.899 Other long term (current) drug therapy; Z90.710 Acquired absence of both cervix and uterus
CPT/HCPCS: 93005 ×2; 99285; 96361; 96374; 96375; 36415 ×2; 83690; 83735; 84443; 85025; 85027; 80048; 80053; 81001 ×2; 84484 ×2; 83036; 80061; 71045; 93010 ×2; 99406; G0378 ×4; A9270 ×22; J1885; J2270 ×3; J1650; J3490 ×3; J2405 ×2; J7030 ×2; S0028

== ENCOUNTER → 2018-07-05 | Outpatient (CLI) | payer MEDICAID, MEDICARE ==
--- NOTE | 2018-07-05 10:13 | WOMENS IMAGING REPORT ---
EXAM DESCRIPTION: BILAT SCREENING MAMMO W/CAD COMPLETED DATE/TIME: 07/05/2018 9:32 am REASON FOR STUDY: SCREENING MAMMO Z12.31 ENCNTR SCREEN MAMMOGRAM FOR MALIGNANT NEOPLASM OF REJI COMPARISON: 2015 TECHNIQUE: Standard craniocaudal and mediolateral oblique views of each breast recorded using digita l acquisition. LIMITATIONS: None. FINDINGS: No masses, calcifications or architectural distortion. No areas of suspicion. Read with the assistance of CAD. .[facility] - R2 Cenova Version 1.3 .[facility] - R2 Cenova Version 1.3 .[facility] - R2 Cenova Version 2.4 .[facility] - R2 Cenova Version 2.4 .[facility] - R2 [employer] Version 9.2 IMPRESSION: NORMAL MAMMOGRAM. BIRADS 1. BREAST DENSITY: b. There are scattered areas of fibroglandular density. BIRAD: 1 NEGATIVE RECOMMENDATION: ROUTINE SCREENING COMMENT: The patient has been notified of the results by letter per SA requirements. Additional no tification policies are in place for contacting patient with suspicious or incomplete findings. Quality ID #225: The [employer] recommends an annual screening mammogram for women aged 40 years or over. This facility utilizes a reminder system to ensure that all patients receive reminder letters, and/or direct phone calls for appointments. This includes reminders for routine scr eening mammograms, diagnostic mammograms, or other Breast Imaging Interventions when appropriate. Th is patient will be placed in the appropriate reminder system. The [employer] (ACR) has developed recommendations for screening MRI of the breast s in certain patient populations, to be used in conjunction with mammography. Breast MRI surveillanc e may be appropriate for women with more than 20% lifetime risk of developing breast cancer as deter mined by genetic testing, significant family history of the disease, or history of mantle radiation f or Hodgkins Disease. ACR Practice Guidelines 2008. TECHNICAL DOCUMENTATION: FINDING NUMBER: (1) ASSESSMENT: (1) JOB ID: [id number] [employer]- All Rights Reserved Reading location - IP/workstation name: [email or web address]-[email or web address]
== END ==
LOC: WI 09:04
PROVIDERS: ATTEND Family Medicine
DX: Z12.31 Encounter for screening mammogram for malignant neoplasm of breast (principal)
CPT/HCPCS: 77067

== ENCOUNTER → 2018-09-25 | Outpatient (CLI) | payer MEDICAID, MEDICARE ==
--- NOTE | 2018-09-25 11:23 | RADIOLOGY REPORT (SQ) ---
EXAM DESCRIPTION: CT ABDOMEN COMBO COMPLETED DATE/TIME: 09/25/2018 10:38 am REASON FOR STUDY: K85.90 ACUTE PANCREATITIS WITHOUT NECROSIS OR INFECTION, UNSP K85.90 ACUTE PANCRE ATITIS WITHOUT NECROSIS OR INFECTION, UNS R74.8 ABNORMAL LEVELS OF OTHER SERUM ENZYMES COMPARISON: None. TECHNIQUE: CT scan of the abdomen performed with and without intravenous contrast, and with oral con trast. Contrasted imaging performed using helical scanning technique with dynamic intravenous contras t injection. Images reviewed with lung, soft tissue, and bone windows. Reconstructed coronal and sagi ttal MPR images reviewed. Delayed images for evaluation of the urinary system also acquired and evalu ated. All images stored on PACS. All CT scanners at this facility use dose modulation, iterative reconstruction, and/or weight based d osing when appropriate to reduce radiation dose to as low as reasonably achievable (ALARA). [facility]: Dose Right [facility]: CareDose [facility]: Dose Right [facility]: Teradose 4D [facility]: [employer] CONTRAST TYPE AND DOSE: contrast/concentration: Isovue 350.00 mg/ml; Total Contrast Delivered: 48.0 ml; Total Saline Delivered: 78.0 ml RENAL FUNCTION: Creatine-1.0 RADIATION DOSE: CT Rad equipment meets quality standard of care and radiation dose reduction techniq ues were employed. CTDIvol: 5.7 - 25.4 mGy. DLP: 801 mGy-cm.. LIMITATIONS: None. FINDINGS: LOWER CHEST: Mild right base atelectasis or scar. LIVER: Hepatomegaly. Mild intra and extrahepatic biliary nonobstructive dilatation in a post cholec ystectomy patient. The hepatic and portal veins are patent. SPLEEN: Normal size. No focal lesions. PANCREAS: No masses. No significant calcifications. No adjacent inflammation or peripancreatic fluid collections. Pancreatic duct not dilated. GALLBLADDER: Prior cholecystectomy. ADRENAL GLANDS: No significant masses or asymmetry. RIGHT KIDNEY AND URETER: No solid masses. No significant calcifications. No hydronephrosis or hyd roureter. LEFT KIDNEY AND URETER: No solid masses. No significant calcifications. No hydronephrosis or hydr oureter. AORTA AND VESSELS: Two patent bilateral renal arteries. Left retro-aortic renal vein, normal anatom ic variant. No aneurysm. No dissection. Renal arteries, SMA, celiac without stenosis. RETROPERITONEUM: No retroperitoneal adenopathy, hemorrhage or masses. BOWEL AND PERITONEAL CAVITY: Constipation involving the visualized bowel. No masses or inflammatory changes. No free fluid or peritoneal masses. APPENDIX: Normal. ABDOMINAL WALL: No masses. No hernias. BONES: Dextroconvex scoliosis and degenerative changes involving the lumbar spine. OTHER: Small fat containing right diaphragmatic hernia. IMPRESSION: 1. The pancreas is unremarkable in appearance by CT examination. Correlation suggested in view of the given history. . 2. Prior cholecystectomy. 3. Additional findings as above. TECHNICAL DOCUMENTATION: JOB ID: [id number] Quality ID # 436: Final reports with documentation of one or more dose reduction techniques (e.g., Au tomated exposure control, adjustment of the mA and/or kV according to patient size, use of iterative reconstruction technique) 2010 [employer]- All Rights Reserved Reading location - IP/workstation name: [email or web address]
== END ==
LOC: RAD 11:21
PROVIDERS: ATTEND Family Medicine
DX: K85.90 Acute pancreatitis without necrosis or infection, unspecified (principal); R74.8 Abnormal levels of other serum enzymes
CPT/HCPCS: 74170; 82565

== ENCOUNTER 2018-10-10 08:34 | Day surgery (SDC) | payer MEDICARE ==
[2018-10-10] MEDS ORDERED: PROPOFOL INJ 200 MG/20 ML VIAL IV ONE (11:55)
[2018-10-10] MEDS ORDERED: ONDANSETRON HCL INJ/PF 4 MG/2 ML SDV IV PRN (12:17)
[2018-10-10 13:10] VITALS: BP 119/73
--- NOTE | 2018-10-10 17:57 | Operative Report ---
Operative Report DATE OF SURGERY: 10/10/18 Operative Report: The risks, benefits and alternatives of the procedure including the risk of bleeding, perforation requiring surgery have been explained to the patient in detail and informed consent has been obtained. Patient is placed in a left, lateral decubital position. Timeout was called. Propofol medication is administered. A rectal examination is done which did not reveal any masses, tears or fissures. An Olympus videoscope was introduced into the patient's re ctum. The scope was then carefully advanced all the way to the cecum. Cecum was identified by the usual anatomical landmarks including the ileocecal valve as well as the appendiceal office. Photodocumentation is obtained. The scope was then sequentially pulled back via the various segments of the colon including the ascending colon, hepatic flexure, transverse colon, splenic flexure, descending colon and finally into the rectosigmoid portions of the colon. Retroflexion maneuver was performed. Prep was not as good. The risks benefits and alternatives of the procedure explained to the patient in detail and informed consent is obtained.A GIF Olympus video scope was inserted into the patient's mouth and hypopharynx, the esophagus is identified intubated and insufflated ,the scope was then advanced through the esophagus stomach and duodenum, retroflexion maneuver is done, the esophagus stomach and first and second portions of the duodenum examined PREOPERATIVE DIAGNOSIS: Nausea vomiting, dysphagia and regurgitation. Change in bowel habits POSTOPERATIVE DIAGNOSIS: Mild inflammation noted on the right side of the colon status post biopsy. Diverticulosis without any evidence of diverticulitis. Internal hemorrhoids. Gastritis status post biopsy for Helicobacter pylori. Hiatal hernia. Schatzki's ring that has broken with biopsy forceps OPERATION: Colonoscopy with biopsy. EGD with biopsy SURGEON: SERENITY QUIROGA ANESTHESIA: LMAC TISSUE REMOVED OR ALTERED: As noted COMPLICATIONS: None. ESTIMATED BLOOD LOSS: None. INTRAOPERATIVE FINDINGS: As noted above. PROCEDURE: Patient tolerated the procedure well. No immediate postprocedure complications are noted. Patient discharged in good condition. Discharge date 10/10/2018. Discharge diet: Regular. Discharge activity: Regular. 2-3-week follow-up to discuss findings. Patient is instructed to call the office or proceed to the emergency room should there be any further questions. Wait on the pathology.
== END 2018-10-10 13:25 | disposition home or self-care (01) ==
LOC: OROUT 08:34
PROVIDERS: ATTEND Internal Medicine Gastroenterology
DX: K52.9 Noninfective gastroenteritis and colitis, unspecified (principal); K57.30 Diverticulosis of large intestine without perforation or abscess without bleeding; K64.8 Other hemorrhoids; K29.50 Unspecified chronic gastritis without bleeding; K44.9 Diaphragmatic hernia without obstruction or gangrene; K22.2 Esophageal obstruction; K20.9 Esophagitis, unspecified; E03.9 Hypothyroidism, unspecified; B19.10 Unspecified viral hepatitis B without hepatic coma; B19.20 Unspecified viral hepatitis C without hepatic coma; Z87.820 Personal history of traumatic brain injury; F17.210 Nicotine dependence, cigarettes, uncomplicated; Z88.5 Allergy status to narcotic agent; Z88.8 Allergy status to other drugs, medicaments and biological substances
CPT/HCPCS: 43239; 45380; 88342 ×2; 88305 ×2; J2704; 813

== ENCOUNTER 2018-12-05 15:35 | Emergency (ER) | payer MEDICARE ==
[2018-12-05 15:44] VITALS: BP 128/73
[2018-12-05] MEDS ORDERED: ONDANSETRON 4 MG TAB.RAPDIS PO ONE (16:57)
--- NOTE | 2018-12-05 16:59 | ER Document Report ---
ED Medical Screen (RME) - General Chief Complaint: Abdominal Pain Stated Complaint: ABDOMINAL PAIN Time Seen by Provider: 12/05/18 16:45 Primary Care Provider: CIRO BRITO MD [Primary Care Provider] - Follow up as needed Mode of Arrival: Ambulatory Information source: Patient Notes: 58-year-old female presented to ED for complaint of abdominal pain nausea with vomiting a couple days ago but no vomiting today. She states she is been having diarrhea since Monday as well as the abdominal pain. She states she had dark 5 diarrhea stools today. She states she does have a history of C. difficile a year ago but this stool does not smell like that. She also has a history of PTSD dementia diverticulitis and ulcerative colitis. She states she does smoke a pack a day drinks maybe monthly and smokes pot. She does live alone. Patient is alert and oriented answering questions appropriately. We have treated her with Zofran for her nausea. I have greeted and performed a rapid initial assessment of this patient. A comprehensive ED assessment and evaluation of the patient, analysis of test results and completion of medical decision making process will be conducted by an additional ED providers. Dictation of this chart was performed using voice recognition software; therefore, there may be some unintended grammatical errors. TRAVEL OUTSIDE OF THE [place] IN LAST 30 DAYS: No - Related Data Allergies/Adverse Reactions: codeine [Codeine] Allergy (Unknown, Verified 10/10/18 08:39) CRAMPING naproxen sodium [From Anaprox] Adverse Reaction (Mild, Verified 10/10/18 08:39) cramping Past Medical History - Social History Frequency of alcohol use: Occasional Drug Abuse: Marijuana - Past Medical History Cardiac Medical History: Denies: Hx Coronary Artery Disease, Hx Heart Attack, Hx Hypertension - LOW Pulmonary Medical History: Reports: Hx Asthma - hx, Hx COPD - hx Denies: Hx Bronchitis, Hx Pneumonia Neurological Medical History: Reports: Hx Seizures - R/T ETOH. Denies: Hx Cerebrovascular Accident Renal/ Medical History: Denies: Hx Peritoneal Dialysis GI Medical History: Reports: Hx Hepatitis Musculoskeltal Medical History: Reports Hx Arthritis - DDD, chronic back pain Psychiatric Medical History: Reports: Hx Depression Infectious Medical History: Reports: Hx Hepatitis Past Surgical History: Reports: Hx Cholecystectomy, Hx Hysterectomy, Hx Orthopedic Surgery - L hand - Immunizations Hx Diphtheria, Pertussis, Tetanus Vaccination: Yes History of Influenza Vaccine for 04/2017 - 09/2017 Season: Unknown Physical Exam - Vital signs Vitals: Temp Pulse Resp BP Pulse Ox 97.5 F 71 16 128/73 H 97 12/05/18 15:43 12/05/18 15:43 12/05/18 15:43 12/05/18 15:43 12/05/18 15:43 Course - Vital Signs Vital signs: Temp Pulse Resp BP Pulse Ox 97.5 F 71 16 128/73 H 97 12/05/18 15:43 12/05/18 15:43 12/05/18 15:43 12/05/18 15:43 12/05/18 15:43 Doctor's Discharge - Discharge Referrals: CIRO BRITO MD [Primary Care Provider] - Follow up as needed
[2018-12-05 17:59] LABS: ABSOLUTE EOSINOPHILS # (AUTO) 0.1 10^3/uL (0.0-0.6); ABSOLUTE LYMPHOCYTES (AUTO) 2.5 10^3/uL (0.5-4.7); ABSOLUTE MONOCYTES (AUTO) 0.4 10^3/uL (0.1-1.4); ABSOLUTE NEUT (AUTO) 4.2 10^3/uL (1.7-8.2); BASOPHILS % (AUTO) 0.6 % (0-2); EOSINOPHILS % (AUTO) 1.1 % (0-6); HEMATOCRIT 42.5 % (36.0-47.0); HEMOGLOBIN 14.6 g/dL (12.0-15.5); LYMPHOCYTES % (AUTO) 34.4 % (13-45); MEAN CORPUSCULAR HGB CONC 34.4 g/dL (32.0-36.0); MEAN CORPUSCULAR VOLUME 87 fl (80-97); MONOCYTES % (AUTO) 5.8 % (3-13); PLATELET COUNT 151 10^3/uL (150-450); RED BLOOD COUNT 4.87 10^6/uL (3.72-5.28); RED CELL DISTRIBUTION WIDTH 13.8 % (11.5-14.0); SEGMENTED NEUTROPHILS % (AUTO) 58.1 % (42-78); TOTAL CELLS COUNTED % (AUTO) 100 %; WHITE BLOOD COUNT 7.3 10^3/uL (4.0-10.5)
[2018-12-05 18:28] LABS: ALANINE AMINOTRANSFERASE 55 U/L (9-52); ALBUMIN 4.9 g/dL (3.5-5.0); ALKALINE PHOSPHATASE 71 U/L (38-126); ANION GAP 12 (5-19); ASPARTATE AMINO TRANSFERASE 51 U/L (14-36); BILIRUBIN,DIRECT 0.2 mg/dL (0.0-0.4); BILIRUBIN,TOTAL 0.6 mg/dL (0.2-1.3); BLOOD UREA NITROGEN 4 mg/dL (7-20); CALCIUM 10.1 mg/dL (8.4-10.2); CARBON DIOXIDE 24 mmol/L (22-30); CHLORIDE 108 mmol/L (98-107); GLUCOSE 90 mg/dL (75-110); LIPASE 95.3 U/L (23-300); POTASSIUM 4.1 mmol/L (3.6-5.0); SODIUM 144.1 mmol/L (137-145); TOTAL PROTEIN 8.5 g/dL (6.3-8.2)
== END 2018-12-05 22:55 | disposition left against medical advice (07) ==
LOC: ER 15:35
DX: R10.9 Unspecified abdominal pain (principal); R11.0 Nausea; R19.7 Diarrhea, unspecified; F12.10 Cannabis abuse, uncomplicated; J44.9 Chronic obstructive pulmonary disease, unspecified; F17.200 Nicotine dependence, unspecified, uncomplicated; Z88.5 Allergy status to narcotic agent; Z90.49 Acquired absence of other specified parts of digestive tract; Z90.710 Acquired absence of both cervix and uterus; Z87.19 Personal history of other diseases of the digestive system; Z53.20 Procedure and treatment not carried out because of patient's decision for unspecified reasons
CPT/HCPCS: 99284; 36415; 83690; 85025; 80053; A9270; S0119

== ENCOUNTER → 2018-12-10 | Outpatient (CLI) | payer MEDICARE, MEDICAID ==
--- NOTE | 2018-12-10 15:24 | RADIOLOGY REPORT (SQ) ---
EXAM DESCRIPTION: CT ABD/PELVIS COMBO COMPLETED DATE/TIME: 12/10/2018 3:02 pm REASON FOR STUDY: ACUTE PANCREATITIS (K85.90) K85.90 ACUTE PANCREATITIS WITHOUT NECROSIS OR INFECTI ON, UNS COMPARISON: 09/25/2018 TECHNIQUE: CT scan of the abdomen and pelvis performed with and without intravenous contrast, and wi thout oral contrast. Contrasted imaging performed helical scanning technique and dynamic intravenous contrast injection. Images reviewed with lung, soft tissue, and bone windows. Reconstructed coronal a nd sagittal MPR images reviewed. Delayed images for evaluation of the urinary system also acquired. A ll images stored on PACS. All CT scanners at this facility use dose modulation, iterative reconstruction, and/or weight based d osing when appropriate to reduce radiation dose to as low as reasonably achievable (ALARA). [facility]: Dose Right [facility]: CareDose [facility]: Dose Right [facility]: Teradose 4D [facility]: [employer] CONTRAST TYPE AND DOSE: contrast/concentration: Isovue 350.00 mg/ml; Total Contrast Delivered: 70.0 ml; Total Saline Delivered: 65.0 ml RENAL FUNCTION: None required. The patient is less than 50 years old. RADIATION DOSE: CT Rad equipment meets quality standard of care and radiation dose reduction techniq ues were employed. CTDIvol: 7.6 - 10.2 mGy. DLP: 1200 mGy-cm. . LIMITATIONS: None. FINDINGS: NON-CONTRASTED IMAGING: No significant renal or bladder calcifications. No other significa nt organ calcifications. POST-CONTRASTED IMAGING: LOWER CHEST: No significant findings. No nodules or infiltrates. LIVER: Fatty change. No mass or dilated ducts. SPLEEN: Normal size. No focal lesions. PANCREAS: No masses. No significant calcifications. No adjacent inflammation or peripancreatic fluid collections. Pancreatic duct not dilated. GALLBLADDER: Surgically absent. ADRENAL GLANDS: No significant masses or asymmetry. RIGHT KIDNEY AND URETER: No solid masses. No significant calcifications. No hydronephrosis or hyd roureter. LEFT KIDNEY AND URETER: No solid masses. No significant calcifications. No hydronephrosis or hydr oureter. AORTA AND VESSELS: No aneurysm. No dissection. Renal arteries, SMA, celiac without stenosis. RETROPERITONEUM: No retroperitoneal adenopathy, hemorrhage or masses. BOWEL AND PERITONEAL CAVITY: No masses or inflammatory changes. No free fluid or peritoneal masses. APPENDIX: Not visualized. PELVIS: No mass. No free fluid. Normal bladder. ABDOMINAL WALL: No masses. No hernias. BONES: No significant or acute findings. OTHER: No other significant finding. IMPRESSION: No acute findings. Fatty liver. TECHNICAL DOCUMENTATION: JOB ID: [id number] Quality ID # [id number]: Final reports with documentation of one or more dose reduction techniques (e.g., Au tomated exposure control, adjustment of the mA and/or kV according to patient size, use of iterative reconstruction technique) 2010 [employer]- All Rights Reserved Reading location - IP/workstation name: [email or web address]
== END ==
LOC: RAD 13:59
PROVIDERS: ATTEND Family Medicine
DX: K85.90 Acute pancreatitis without necrosis or infection, unspecified (principal)
CPT/HCPCS: 74178

== ENCOUNTER 2018-12-12 15:27 | Emergency (ER) | payer MEDICARE ==
[2018-12-12 16:23] LABS: ABSOLUTE EOSINOPHILS # (AUTO) 0.2 10^3/uL (0.0-0.6); ABSOLUTE LYMPHOCYTES (AUTO) 1.7 10^3/uL (0.5-4.7); ABSOLUTE MONOCYTES (AUTO) 0.2 10^3/uL (0.1-1.4); ABSOLUTE NEUT (AUTO) 2.1 10^3/uL (1.7-8.2); BASOPHILS % (AUTO) 0.9 % (0-2); EOSINOPHILS % (AUTO) 5.1 % (0-6); HEMATOCRIT 39.1 % (36.0-47.0); HEMOGLOBIN 13.4 g/dL (12.0-15.5); LYMPHOCYTES % (AUTO) 40.4 % (13-45); MEAN CORPUSCULAR HEMOGLOBIN 30.4 pg (27.0-33.4); MEAN CORPUSCULAR HGB CONC 34.3 g/dL (32.0-36.0); MEAN CORPUSCULAR VOLUME 89 fl (80-97); PLATELET COUNT 113 10^3/uL (150-450); RED BLOOD COUNT 4.41 10^6/uL (3.72-5.28); SEGMENTED NEUTROPHILS % (AUTO) 48.6 % (42-78); TOTAL CELLS COUNTED % (AUTO) 100 %; WHITE BLOOD COUNT 4.3 10^3/uL (4.0-10.5)
[2018-12-12] MEDS ORDERED: NORMAL SALINE 1000 ML 1,000 ML IV ONE (16:29)
[2018-12-12] MEDS ORDERED: ONDANSETRON HCL INJ/PF 4 MG/2 ML SDV IV ONE (16:30)
--- NOTE | 2018-12-12 16:33 | PSYCHOLOGICAL NOTE ---
Psych Note - Psych Note Date seen by psych provider: 12/12/18 Time seen by psych provider: 04: 0415 Psych Note: Reason for consult: Altered mental status Collateral obtained from patient's daughter Patient's daughter is in room with patient who reports the patient does have mental health history of "mood, depression, and substance abuse history." Patient reportedly failed her "dementia test" 2 months ago and is supposed to follow-up with neurology. Family has been unable to make this appointment as it has been a very bit busy time of year with graduations. Patient daughter continues to report that the patient was on face time with her grandson when she when she when she suddenly became unconscious and was witnessed twitching. She discloses that the grandson states that this happened for approximately 5 minutes. He confirms that the patient was acting odd prior to event also. Patient has history of substance abuse and will use anything or anything she can get a hold of however has been "clean and sober for 11 years." Behavioral health team contacted [facility], patient's pharmacy, to receive updated medication list. This was provided to attending physician. Impression\\plan: At this time, there is no evidence that the patient intentionally harmed herself. Behavioral health team will follow.
[2018-12-12 16:41] LABS: ALANINE AMINOTRANSFERASE 48 U/L (9-52); ALBUMIN 4.1 g/dL (3.5-5.0); ALKALINE PHOSPHATASE 55 U/L (38-126); ANION GAP 8 (5-19); ASPARTATE AMINO TRANSFERASE 54 U/L (14-36); BILIRUBIN,DIRECT 0.2 mg/dL (0.0-0.4); BILIRUBIN,TOTAL 0.3 mg/dL (0.2-1.3); BLOOD UREA NITROGEN 8 mg/dL (7-20); CALCIUM 9.2 mg/dL (8.4-10.2); CARBON DIOXIDE 26 mmol/L (22-30); CHLORIDE 106 mmol/L (98-107); GLUCOSE 83 mg/dL (75-110); POTASSIUM 4.1 mmol/L (3.6-5.0); TOTAL PROTEIN 7.1 g/dL (6.3-8.2)
[2018-12-12 16:44] LABS: ACETAMINOPHEN < 10 ug/mL (10-30); ALCOHOL < 10 mg/dL (NONE DETECTED); SALICYLATE < 1.0 mg/dL (2.0-20.0)
--- NOTE | 2018-12-12 16:53 | RADIOLOGY REPORT (SQ) ---
EXAM DESCRIPTION: CT HEAD WITHOUT COMPLETED DATE/TIME: 12/12/2018 4:41 pm REASON FOR STUDY: ams COMPARISON: None. TECHNIQUE: Axial images acquired through the brain without intravenous contrast. Images reviewed wi th bone, brain and subdural windows. Additional sagittal and coronal reconstructions were generated. Images stored on PACS. All CT scanners at this facility use dose modulation, iterative reconstruction, and/or weight based d osing when appropriate to reduce radiation dose to as low as reasonably achievable (ALARA). [facility]: Dose Right [facility]: CareDose [facility]: Dose Right [facility]: Teradose 4D [facility]: Manas Informatic RADIATION DOSE: CT Rad equipment meets quality standard of care and radiation dose reduction techniq ues were employed. CTDIvol: 53.2 mGy. DLP: 1070 mGy-cm. mGy. LIMITATIONS: None. FINDINGS: VENTRICLES: Normal size and contour. CEREBRUM: No masses. No hemorrhage. No midline shift. No evidence for acute infarction. Normal gra y/white matter differentiation. No areas of low density in the white matter. CEREBELLUM: No masses. No hemorrhage. No alteration of density. No evidence for acute infarction. EXTRAAXIAL SPACES: No fluid collections. No masses. ORBITS AND GLOBE: No intra- or extraconal masses. Normal contour of globe without masses. CALVARIUM: No fracture. PARANASAL SINUSES: No fluid or mucosal thickening. SOFT TISSUES: No mass or hematoma. OTHER: No other significant finding. IMPRESSION: NORMAL BRAIN CT WITHOUT CONTRAST. EVIDENCE OF ACUTE STROKE: NO. COMMENT: Quality ID # [id number]: Final reports with documentation of one or more dose reduction techniques (e.g., Automated exposure control, adjustment of the mA and/or kV according to patient size, use of iterative reconstruction technique) TECHNICAL DOCUMENTATION: JOB ID: [id number] 1491 [employer]- All Rights Reserved Reading location - IP/workstation name: [email or web address]
[2018-12-12] MEDS ORDERED: PROMETHAZINE HCL 25 MG TABLET PO ONE (17:12)
[2018-12-12] MEDS ORDERED: MORPHINE SULFATE 10 MG/ML INJ IV ONE (18:08)
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
--- NOTE | 2018-12-12 18:23 | EKG REPORT ---
SEVERITY:- ABNORMAL ECG - SINUS RHYTHM CONSIDER OLD ANTEROSEPTAL PA : Confirmed by: Junaid Pedro MD 12-Dec-2018 18:23:04
[2018-12-12 18:49] LABS: APPEARANCE,URINE CLEAR; BILIRUBIN,URINE NEGATIVE (NEGATIVE); COLOR,URINE YELLOW; GLUCOSE, URINE NEGATIVE (NEGATIVE); KETONES,URINE NEGATIVE (NEGATIVE); LEUKOCYTE ESTERASE,URINE NEGATIVE (NEGATIVE); NITRITE,URINE NEGATIVE (NEGATIVE); PROTEIN,URINE NEGATIVE (NEGATIVE); URINE SPECIFIC GRAVITY 1.011; UROBILINOGEN,URINE NEGATIVE mg/dL (<2.0)
[2018-12-12 19:04] LABS: URINE AMPHETAMINES SCREEN NEGATIVE; URINE BARBITURATES SCREEN NEGATIVE; URINE BENZODIAZEPINES SCREEN UNCONFIRMED POSITIVE; URINE COCAINE SCREEN NEGATIVE; URINE MARIJUANA (THC) SCREEN UNCONFIRMED POSITIVE; URINE METHADONE SCREEN NEGATIVE; URINE PHENCYCLIDINE SCREEN NEGATIVE
[2018-12-12] MEDS: NORMAL SALINE 1000 ML 1,000 ML IV PRN ×2 (19:39→19:44)
[2018-12-12 20:23] VITALS: BP 149/86
== END 2018-12-12 20:23 | disposition home or self-care (01) ==
LOC: ER 15:27
DX: R41.82 Altered mental status, unspecified (principal); K86.1 Other chronic pancreatitis; R10.9 Unspecified abdominal pain; M54.9 Dorsalgia, unspecified; G89.29 Other chronic pain; F11.20 Opioid dependence, uncomplicated; R11.0 Nausea; R47.81 Slurred speech; R10.817 Generalized abdominal tenderness; R14.0 Abdominal distension (gaseous); F12.10 Cannabis abuse, uncomplicated; J44.9 Chronic obstructive pulmonary disease, unspecified; I10 Essential (primary) hypertension; R06.02 Shortness of breath; F17.210 Nicotine dependence, cigarettes, uncomplicated; Z90.49 Acquired absence of other specified parts of digestive tract; Z90.710 Acquired absence of both cervix and uterus; Z88.5 Allergy status to narcotic agent
CPT/HCPCS: 93005; 99285; 96361; 96374; 36415; 80307 ×4; 82140; 83690; 85025; 80053; 81001; 70450; 93010; J2270; A9270; J7030

== ENCOUNTER 2019-02-22 00:37 | Emergency (ER) | payer MEDICARE ==
[2019-02-22 01:38] LABS: ABSOLUTE BASOPHILS # (AUTO) 0.1 10^3/uL (0.0-0.2); ABSOLUTE EOSINOPHILS # (AUTO) 0.2 10^3/uL (0.0-0.6); ABSOLUTE LYMPHOCYTES (AUTO) 2.6 10^3/uL (0.5-4.7); ABSOLUTE MONOCYTES (AUTO) 0.4 10^3/uL (0.1-1.4); ABSOLUTE NEUT (AUTO) 2.7 10^3/uL (1.7-8.2); BASOPHILS % (AUTO) 0.8 % (0-2); EOSINOPHILS % (AUTO) 3.2 % (0-6); HEMATOCRIT 42.8 % (36.0-47.0); HEMOGLOBIN 14.7 g/dL (12.0-15.5); LYMPHOCYTES % (AUTO) 43.8 % (13-45); MEAN CORPUSCULAR HEMOGLOBIN 31.2 pg (27.0-33.4); MEAN CORPUSCULAR HGB CONC 34.4 g/dL (32.0-36.0); MEAN CORPUSCULAR VOLUME 91 fl (80-97); MONOCYTES % (AUTO) 6.8 % (3-13); PLATELET COUNT 160 10^3/uL (150-450); RED BLOOD COUNT 4.71 10^6/uL (3.72-5.28); RED CELL DISTRIBUTION WIDTH 15.7 % (11.5-14.0); SEGMENTED NEUTROPHILS % (AUTO) 45.4 % (42-78); TOTAL CELLS COUNTED % (AUTO) 100 %
[2019-02-22 01:56] LABS: ALBUMIN 4.5 g/dL (3.5-5.0); ALKALINE PHOSPHATASE 63 U/L (38-126); ANION GAP 6 (5-19); ASPARTATE AMINO TRANSFERASE 133 U/L (14-36); BILIRUBIN,DIRECT 0.3 mg/dL (0.0-0.4); BILIRUBIN,TOTAL 0.7 mg/dL (0.2-1.3); BLOOD UREA NITROGEN 8 mg/dL (7-20); CALCIUM 9.7 mg/dL (8.4-10.2); CARBON DIOXIDE 29 mmol/L (22-30); CHLORIDE 106 mmol/L (98-107); GLUCOSE 95 mg/dL (75-110); POTASSIUM 3.8 mmol/L (3.6-5.0); TOTAL PROTEIN 7.9 g/dL (6.3-8.2)
[2019-02-22 02:00] LABS: APPEARANCE,URINE CLEAR; BILIRUBIN,URINE NEGATIVE (NEGATIVE); COLOR,URINE YELLOW; GLUCOSE, URINE NEGATIVE (NEGATIVE); KETONES,URINE TRACE mg/dL (NEGATIVE); LEUKOCYTE ESTERASE,URINE SMALL (NEGATIVE); NITRITE,URINE NEGATIVE (NEGATIVE); PROTEIN,URINE NEGATIVE (NEGATIVE); URINE SPECIFIC GRAVITY 1.013
[2019-02-22] MEDS ORDERED: METOCLOPRAMIDE HCL INJ/PF 10 MG/2 ML SDV IM ONE (03:07)
--- NOTE | 2019-02-22 03:07 | ER Document Report ---
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 Patient states that her current feeling is "not the normal sick". She said she is sick and tired of being sick and tired. Patient states her abdominal pain is epigastric. Patient states that she was noted to be because she cannot take any pain medication because of her cirrhosis like Tylenol and Zofran is working for her nausea. Patient denies any recent fevers or illness, denies any acute w eakness, denies acute shortness of breath or chest pain, denies urinary symptoms, denies abnormal vaginal discharge. TRAVEL OUTSIDE OF THE [place] IN LAST 30 DAYS: No - Related Data Allergies/Adverse Reactions: codeine [Codeine] Allergy (Unknown, Verified 12/12/18 16:21) CRAMPING naproxen sodium [From Anaprox] Adverse Reaction (Mild, Verified 12/12/18 16:21) cramping Past Medical History - Social History Smoking Status: Current Every Day Smoker Frequency of alcohol use: Heavy Family History: Reviewed & Not Pertinent Patient has suicidal ideation: No Patient has homicidal ideation: No - Past Medical History Cardiac Medical History: Denies: Hx Coronary Artery Disease, Hx Heart Attack, Hx Hypertension - LOW Pulmonary Medical History: Reports: Hx Asthma - hx, Hx COPD - hx Denies: Hx Bronchitis, Hx Pneumonia Neurological Medical History: Reports: Hx Seizures - R/T ETOH. Denies: Hx Cerebrovascular Accident Renal/ Medical History: Denies: Hx Peritoneal Dialysis GI Medical History: Reports: Hx Hepatitis Musculoskeletal Medical History: Reports Hx Arthritis - DDD, chronic back pain Psychiatric Medical History: Reports: Hx Depression Infectious Medical History: Reports: Hx Hepatitis Past Surgical History: Reports: Hx Cholecystectomy, Hx Hysterectomy, Hx Orthopedic Surgery - L hand - Immunizations Hx Diphtheria, Pertussis, Tetanus Vaccination: Yes Review of Systems - Review of Systems Constitutional: See HPI EENT: No symptoms reported Cardiovascular: See HPI Respiratory: See HPI Gastrointestinal: See HPI Genitourinary: See HPI Female Genitourinary: See HPI Musculoskeletal: See HPI Skin: No symptoms reported Hematologic/Lymphatic: No symptoms reported Neurological/Psychological: No symptoms reported Physical Exam - Notes Notes: PHYSICAL EXAMINATION: Reviewed vital signs and charting by RN GENERAL: Alert, interacts well. No acute distress. HEAD: Normocephalic, atraumatic. EYES: Pupils equal and round. Extraocular movements intact. ENT: Oral mucosa moist, tongue midline. NECK: Full range of motion. Trachea midline. LUNGS: Clear to auscultation bilaterally, no wheezes, rales, or rhonchi. No respiratory distress. HEART: Regular rate and rhythm. No murmur ABDOMEN: soft, generalized tenderness to even light palpation when I even gently put one finger on the abdomen but no evidence of peritonitis. No distention. Bowel sounds present EXTREMITIES: Moves all 4 extremities spontaneously. No edema, No cyanosis. PSYCH: Normal affect, normal mood. SKIN: Warm, dry, normal turgor. No rashes or lesions noted. Course - Re-evaluation Re-evalutation: 02/22/19 03:07 Patient is in no acute distress and nontoxic-appearing. Patient was seen here as recently as December and had a CT abdomen pelvis which was unremarkable. There were no acute findings at the time. Patient had a recent diagnosis of pancreatitis. Plan is to get some basic lab work evaluation and treat her for nausea. 02/22/19 05:11 I went ahead and get the CT abdomen/pelvis with IV contrast which was unremarkable other than fatty liver. Lab work all within normal limits. Because this patient has a complicated pain history I suspect is having a chronic pain exacerbation and there are no acute findings here today. Abdominal exam is benign without any focal tenderness. Vitals are normal at the time of arrival. Laboratories are unremarkable without evidence of cystitis, , or leukocytosis. Patient is overall very well in appearance. Based on clinical history and examination I do not suspect an acute appendicitis, tubo-ovarian abscess, related pathology, pelvic inflammatory disease, mesenteric ischemia, or pyelonephritis. Pelvic exam without cervical motion tenderness or focal adnexal tenderness. Will discharge home with return precautions and followup recommendations. - Laboratory Result Diagrams: 02/22/19 01:30 02/22/19 01:30 Laboratory results interpreted by me: 02/22/19 02/22/19 02/22/19 01:30 01:30 01:40 RDW 15.7 H AST 133 H Urine Ketones TRACE H Urine Urobilinogen 2.0 H Ur Leukocyte Esterase SMALL H Discharge - Discharge Clinical Impression: Nausea Abdominal pain Qualifiers: Abdominal location: generalized Qualified Code(s): R10.84 - Generalized abdominal pain Condition: Good Disposition: HOME, SELF-CARE Additional Instructions: You have been seen in the Emergency Department (ED) for abdominal pain. Your evaluation did not identify a clear cause of your symptoms but was generally reassuring. Please follow up with your doctor as soon as possible regarding today's emergent visit and the symptoms that are bothering you. Return to the ED if your abdominal pain worsens or fails to improve, you develop bloody vomiting, bloody diarrhea, you are unable to tolerate fluids due to vomiting, fever greater than 101, or other symptoms that concern you. Referrals: CIRO BRITO MD [Primary Care Provider] - Follow up as needed
--- NOTE | 2019-02-22 05:05 | RADIOLOGY REPORT (SQ) ---
CT abdomen and pelvis with contrast on 02/22/2019 at 4:36 AM CLINICAL INDICATION: Epigastric pain TECHNIQUE: Multiple axial images are obtained throughout the abdomen and pelvis following the administration of IV contrast, 100 mL of Omnipaque 350 contrast was administered intravenously without complication. This exam was performed according to our departmental dose-optimization program, which includes automated exposure control, adjustment of the mA and/or kV according to patient size and/or use of iterative reconstruction technique. Total DLP is 644.91 mGy*cm. COMPARISON: 12/10/2018 FINDINGS: Abdomen: The lung bases are clear. There is fatty infiltration of the liver. The patient is status post cholecystectomy. The solid abdominal organs are otherwise unremarkable. Mild vascular calcifications are noted. There is no abdominal adenopathy. There is no free fluid or free air within the abdomen. The abdominal portion of the GI tract is unremarkable. Pelvis: The patient is status post hysterectomy. There is no free fluid in the pelvis. There is no pelvic adenopathy. Pelvic portion of the GI tract including the appendix is unremarkable. Degenerative changes and mild dextroscoliosis is noted in the lumbar spine. No acute bony abnormality is noted. IMPRESSION: 1. Fatty infiltration of the liver. 2. No acute abnormality.
[2019-02-22 05:38] VITALS: BP 124/78
== END 2019-02-22 05:39 | disposition home or self-care (01) ==
LOC: ER 00:37
DX: R10.84 Generalized abdominal pain (principal); R11.0 Nausea; F17.200 Nicotine dependence, unspecified, uncomplicated; G89.29 Other chronic pain; M54.9 Dorsalgia, unspecified; K70.30 Alcoholic cirrhosis of liver without ascites; E03.9 Hypothyroidism, unspecified; I10 Essential (primary) hypertension; J44.9 Chronic obstructive pulmonary disease, unspecified; Z88.6 Allergy status to analgesic agent
CPT/HCPCS: 99284; 96372; 36415; 83690; 85025; 80053; 81001; 74177; J2765

== ENCOUNTER 2019-03-05 10:16 | Emergency (ER) | payer OTHER, MEDICARE ==
[2019-03-05 10:38] VITALS: BP 112/77
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
== END 2019-03-05 12:10 | disposition home or self-care (01) ==
LOC: ER 10:16
DX: M25.561 Pain in right knee (principal); M25.511 Pain in right shoulder; V87.7XXA Person injured in collision between other specified motor vehicles (traffic), initial encounter; F17.200 Nicotine dependence, unspecified, uncomplicated; Z90.49 Acquired absence of other specified parts of digestive tract; Z90.710 Acquired absence of both cervix and uterus

== ENCOUNTER 2019-06-24 10:14 | Day surgery (SDC) | payer MEDICARE ==
[~2019-06-24 10:14] MED LIST changes: -FENTANYL CITRATE INJ/PF 100 MCG/2 ML AMPUL ONE; +LIDOCAINE 2% INJ-PF (20 MG/ML) 10 ML AMPUL ONE; -MIDAZOLAM 2 MG/2 ML INJ ONE
[2019-06-24 12:04] VITALS: BP 121/72
--- NOTE | 2019-06-24 12:29 | Operative Report ---
Operative Report DATE OF SURGERY: 06/24/19 Operative Report: The risk, benefits and alternatives of the procedure including the risks of bleeding, perforation requiring surgery have been explained to the patient in detail and informed consent has been obtained. Patient is taken back to the endoscopy suite and placed in a left, lateral decubital position. Timeout was called. Propofol medication is administered. Rectal examination is done which did not reveal any masses, tears or fissures. Olympus videoscope was introduced into the patient's rectum. Scope was then carefully advanced all the way to the cecum. The cecum was identified by the usual anatomical landmarks of the ileocecal valve as well as appendiceal office. Photodocumentation is obtained. Scope was then sequentially pulled back via the various segments of the colon including the ascending colon, hepatic flexure, transverse colon, splenic flexure, descending colon and finally into the rectosigmoid portions of the colon. Retroflexion maneuvers performed. The risks benefits and alternatives of the procedure explained to the patient in detail and informed consent is obtained.A GIF Olympus video scope was inserted into the patient's mouth and hypopharynx, the esophagus is identified intubated and insufflated ,the scope was then advanced through the esophagus stomach and duodenum, retroflexion maneuver is done, the esophagus stomach and first and second portions of the duodenum examined PREOPERATIVE DIAGNOSIS: Change in bowel habits, abdominal pain POSTOPERATIVE DIAGNOSIS: Ascending colon polypremoved via snare polypectomy and retrieved. Right colon inflammation status post biopsy. Gastritis status post biopsy OPERATION: Colonoscopy with snare polypectomy. Colonoscopy with biopsy. EGD with biopsy SURGEON: SERENITY QUIROGA ANESTHESIA: LMAC TISSUE REMOVED OR ALTERED: As noted above. COMPLICATIONS: None. ESTIMATED BLOOD LOSS: None. INTRAOPERATIVE FINDINGS: As noted above. PROCEDURE: Patient tolerated the procedure well. No immediate postprocedure complications are noted. Patient is discharged in good condition. Discharge date 06/24/2019. Discharge diet: Regular. Discharge activity: Regular. 2 to 3-week follow-up to discuss findings. Patient is instructed to call the office or proceed to the emergency room should there be any further problems or questions. 5-year surveillance colonoscopy.
== END 2019-06-24 12:04 | disposition home or self-care (01) ==
LOC: END 10:14
PROVIDERS: ATTEND Internal Medicine Gastroenterology
DX: R13.10 Dysphagia, unspecified (principal); K52.9 Noninfective gastroenteritis and colitis, unspecified; D12.2 Benign neoplasm of ascending colon; K29.50 Unspecified chronic gastritis without bleeding; K64.8 Other hemorrhoids; Z86.73 Personal history of transient ischemic attack (TIA), and cerebral infarction without residual deficits; E07.9 Disorder of thyroid, unspecified; F17.210 Nicotine dependence, cigarettes, uncomplicated
CPT/HCPCS: 43239; 45380; 45385; 88305 ×2; 00813; J2704; J3490; 813